=== PATIENT | female | born 1945 | race Caucasian/White ===

== ENCOUNTER → 2023-07-26 08:44 | Outpatient (REF) | payer MEDICARE, OTHER, SELFPAY ==
[2023-07-26 12:25] LABS: ALT (SGPT) 13 U/L (0-35); AST (SGOT) 26 U/L (14-36); Albumin 4.3 g/dl (3.5-5.0); Alkaline Phosphatase 65 U/L (38-126); Blood Urea Nitrogen 27 mg/dl (7-17); Calcium 9.8 mg/dl (8.4-10.2); Carbon Dioxide 27 mmol/L (22-30); Chloride 103 mmol/L (98-107); Glucose 110 mg/dl (70-99); HDL Cholesterol 52 mg/dl; LDL Cholesterol, Calculated 164 mg/dl; Potassium 4.4 mmol/L (3.5-5.1); Sodium 139 mmol/L (135-145); Total Bilirubin 0.7 mg/dl (0.2-1.3); Total Cholesterol 241 mg/dl (50-199); Total Protein 7.2 g/dl (6.3-8.2); Triglyceride 126 mg/dl (10-149); Very Low Density Lipoprotein 25 mg/dl (0-30); eGFR 51.75
[2023-07-26 12:57] LABS: Glycohemoglobin (HgbA1c) 6.1 % (4.0-5.6)
== END ==
LOC: HWLAB 08:44
PROVIDERS: ATTENDING PHYSICIAN Internal Medicine
DX: E78.2 Mixed hyperlipidemia (principal); R73.01 Impaired fasting glucose
CPT/HCPCS: 36415; 80053; 80061; 83036

== ENCOUNTER → 2024-01-28 10:21 | Outpatient (REF) | payer MEDICARE, OTHER, SELFPAY ==
[2024-01-28 13:24] LABS: ALT (SGPT) 18 U/L (0-35); AST (SGOT) 26 U/L (14-36); Albumin 4.5 g/dl (3.5-5.0); Alkaline Phosphatase 65 U/L (38-126); Blood Urea Nitrogen 32 mg/dl (7-17); Calcium 9.7 mg/dl (8.4-10.2); Carbon Dioxide 29 mmol/L (22-30); Chloride 105 mmol/L (98-107); Glucose 111 mg/dl (70-99); HDL Cholesterol 64 mg/dl; LDL Cholesterol, Calculated 162 mg/dl; Potassium 4.5 mmol/L (3.5-5.1); Sodium 143 mmol/L (135-145); Total Bilirubin 0.7 mg/dl (0.2-1.3); Total Cholesterol 252 mg/dl (50-199); Total Protein 7.5 g/dl (6.3-8.2); Triglyceride 131 mg/dl (10-149); Very Low Density Lipoprotein 26 mg/dl (0-30); eGFR > 60.00
== END ==
LOC: HWLAB 10:21
PROVIDERS: ATTENDING PHYSICIAN Internal Medicine
DX: I10 Essential (primary) hypertension (principal); E78.2 Mixed hyperlipidemia; R73.01 Impaired fasting glucose
CPT/HCPCS: 36415; 80053; 80061; 83036

== ENCOUNTER → 2024-06-09 09:50 | Outpatient (REF) | payer MEDICARE, OTHER, SELFPAY | LOC: HWRCS 09:50 | PROVIDERS: ATTENDING PHYSICIAN Student in an Organized Health Care Education/Training Program; FAMILY PHYSICIAN Internal Medicine | DX: I35.1 Nonrheumatic aortic (valve) insufficiency (principal) | CPT/HCPCS: 93306 ==

== ENCOUNTER → 2024-06-24 10:55 | Outpatient (REF) | payer MEDICARE, OTHER, SELFPAY | LOC: HWRAD 10:55 | PROVIDERS: ATTENDING PHYSICIAN Internal Medicine | DX: M81.0 Age-related osteoporosis without current pathological fracture (principal) | CPT/HCPCS: 77080 ==

== ENCOUNTER → 2024-08-03 08:46 | Outpatient (REF) | payer MEDICARE, OTHER, SELFPAY ==
[2024-08-03 14:14] LABS: ALT (SGPT) 15 U/L (0-35); AST (SGOT) 23 U/L (14-36); Albumin 4.3 g/dl (3.5-5.0); Alkaline Phosphatase 60 U/L (38-126); Blood Urea Nitrogen 22 mg/dl (7-17); Calcium 9.8 mg/dl (8.4-10.2); Carbon Dioxide 26 mmol/L (22-30); Chloride 108 mmol/L (98-107); Glucose 116 mg/dl (70-99); HDL Cholesterol 59 mg/dl; LDL Cholesterol, Calculated 154 mg/dl; Potassium 4.2 mmol/L (3.5-5.1); Sodium 142 mmol/L (135-145); Total Bilirubin 0.7 mg/dl (0.2-1.3); Total Cholesterol 233 mg/dl (50-199); Total Protein 7.3 g/dl (6.3-8.2); Triglyceride 103 mg/dl (10-149); Very Low Density Lipoprotein 20 mg/dl (0-30); eGFR > 60.00
== END ==
LOC: HWLAB 08:46
PROVIDERS: ATTENDING PHYSICIAN Internal Medicine
DX: E78.2 Mixed hyperlipidemia (principal); R73.01 Impaired fasting glucose
CPT/HCPCS: 36415; 80053; 80061; 83036

== ENCOUNTER 2024-08-27 16:34 | Emergency (ER) | payer MEDICARE, OTHER, SELFPAY ==
[2024-08-27] VITALS (27 sets, daily range): BP systolic 81–120; BP diastolic 34–89; BMI 23.1
[2024-08-27 17:14] LABS: Hematocrit 40.2 % (37.0-47.0); Hemoglobin 13.4 g/dL (12.0-16.0); Mean Corp Hgb Conc. 33.3 g/dL (33.0-37.0); Mean Corpuscular Volume 90.1 fL (81.0-99.0); Nucleated Red Blood Cells % 0 %; Platelet Count 215 10^3/uL (130-400); Red Cell Dist. Width 14.2 % (11.5-14.5)
--- NOTE | 2024-08-27 17:26 | ED.GENMED ---
History of Present Illness
General
Chief Complaint: Chest Pain
Source: patient and family
Time Seen by Provider: 08/27/24 17:02
History of Present Illness
History of Present Illness:
78-year-old female presents emergency department with complaints of feeling like she is in A-fib. She had an episode initially 2 years ago and since that time has been very compliant with her medications which includes Eliquis and diltiazem. She
noted her symptoms initially 2:45 PM today where she felt like her heart was racing associated with 'a little discomfort' in the left anterior chest. This not associated with back pain neck pain, headache, dizziness, diaphoresis, dyspnea, leg
swelling, or other complaints. She took her evening dose of diltiazem early without relief of symptoms.
Past History
Past History
ED Past Medical History: Arrthythmia, HTN, Hypercholesterolemia and Other (Mitral and aortic valve regurg)
ED Past Surgical History: Gynecological
Social History
Tobacco: Non-smoker
Alcohol: None
Drug: None
Personal:
Living: with family
Family History
Family History: CAD (Age 80)
Phy Exam
Physical Exam
Physical Exam:
GENERAL: Alert , in no apparent distress
EYE: pupils equal and reactive
NECK: Supple, no significant adenopathy.
ENT: o/p clr, mmm.
CARDIAC: Irregularly irregular, tachycardic
LUNGS: Clear breath sounds bilaterally, no acute respiratory distress, no wheezes rales or rhonchi
ABDOMEN: Soft, without focal tenderness, no r/g, no cvat
NEUROLOGICAL: Alert and oriented, no focal neuro deficits
SKIN: Warm and dry, skin intact.
MUSCULOSKELETAL: No edema, well perfused.
PSYCH: Normal and appropriate interaction but somewhat anxious.
Scores
Heart Score for Chest Pain Patients
STEMI patient?: Not applicable
Course
Orders/Labs/Results
Orders:
Orders
08/27/24 16:37
EKG [Electrocardiogram (*1)] Urgent
Reason for Study: Chest Pain
EKG- Treatment ONCE
08/27/24 17:06
CBC/With Diff [Complete Blood Count/With Diff] Urgent
CMP [Comprehensive Metabolic Panel] Urgent
TSH Urgent
Comment: ADD ON
08/27/24 17:17
Add On- LAB Stat
Comments:: A fib
Tests Added?: TSH
08/27/24 17:25
Lorazepam [Ativan] 0.5 mg IV NOW STA
08/27/24 17:54
Propofol [Diprivan] 20 ml .ROUTE .STK-MED
08/27/24 18:29
Diltiazem HCl [Cardizem] 14 mg IV NOW STA
08/27/24 18:30
Diltiazem 125 mg/125 ml Nss [Cardizem] 125 mg in 125 ml IV PER PROTOCOL
Initial dose in mg/hr, then titrate:: 5
Titrate to keep:: Heart rate 80-100 bpm
Titrate by mg/hr:: 5 mg/hr
Frequency of titrations (minutes):: 15
Maximum dose in mg/hr:: 15
Abnormal Lab Results
08/27/24
17:06
MPV 10.7 H fL
(7.4-10.4)
BUN 25 H mg/dl
(7-17)
Glucose 152 H mg/dl
(70-99)
Total Protein 8.4 H g/dl
(6.3-8.2)
08/27/24 17:06
08/27/24 17:06
Vital Signs
Initial and Last Documented VS:
Initial Vital Signs
Temp Pulse Resp Pulse Ox
98.1 F 141 20 99
08/27/24 16:40 08/27/24 16:40 08/27/24 16:40 08/27/24 16:40
Last Documented Vital Signs
Temp Pulse Resp BP Pulse Ox
97.5 F 103 17 101/53 93
08/27/24 18:56 08/27/24 21:00 08/27/24 21:00 08/27/24 19:21 08/27/24 21:00
Procedures
Cardioversion
Indication:: Afib
Performed by:: bf
Synchronized?: Yes
Energy Used: Other
Number of attempts: 3
Successful?: No
ASA Risk Score: Class II
Any reaction or bad outcome to prior sedation/anesthesia?: No history of a reaction
Sedation level to be attained: moderate
Chart and allergies reviewed: Yes
Patient reassessed prior to sedation: Yes
Time out completed at (validating right patient & procedure): 18:10
History of difficult intubation: No
Airway free of obstruction: Yes
Patient has a gag reflex: Yes
Patient is able to open mouth: Yes
Patient has no dentures: Yes
Patient has no loose teeth: Yes
Medication administered by Provider during Moderate Sedation: IV Propofol (mg)
Total dose administered: 30
Time drug administered: 18:11
Start Time: 18:10
Stop Time: 18:26
*Pulse Oximetry
SaO2: 98
Oxygen Mode of Delivery: Room air
Patient hypoxic: no
*Critical Care Note
Total Time (30-74mins, 75-104mins- exclusive of procedures): Not Applicable
Update Note
Update Note:
Patient presents to the Emergency Department with __palpitations and slight chest discomfort
Number and Complexity of Problems Addressed at the Encounter
� Chronic conditions affecting care:
� Acute Exacerbation and/or Progression of Chronic Illness:
� Differential Diagnosis includes: But not limited to SVT, a flutter, A-fib, electrolyte disorder, ACS, etc. etc.
Amount and/or Complexity of Data to be Reviewed and Analyzed
� I performed an independent evaluation of and my interpretation is:
EKG: Read by me, atrial fibrillation with RVR, no acute ischemia, normal axis
CT:
Xrays:
Laboratory Studies: Generally unremarkable
Other:
� Review of other/old records reveals:
� Clinical information was obtained by an independent historian: Daughter and who are at bedside
� Prescriptions/Medications Considered but not given:
� Further testing considered but not performed:
Risk of Complications and/or Morbidity or Mortality of Patient Management
� Social determinants of health affecting care:
� Discussion with other providers (PCP, Hospitalists, Consultants, etc):
� Escalation of care including admission/observation vs risk of discharge considered: Patient reaffirms that she is compliant with her DOAC. Long discussion with patient, daughter, and regarding options with rate control
versus cardioversion. She elects for cardioversion here in the emergency department. She is a candidate given her compliance with DOAC and lack of other complicating factors. Will give a small dose of Ativan given patient's reported anxiety.
Risk benefits explained, consent signed, cardioversion performed, unfortunately this was not successful. Patient was then given diltiazem IV, and then observed off of this medication. She continues to be in atrial fibrillation but is rate
controlled in the 90s and feels well, would like to go home. Case discussed with cardiology, Dr. Pennington, who recommends that she increase her Cardizem to 180 mg and call the office at 9 AM tomorrow for prompt follow-up. Patient is comfortable with this
plan, and I will with her prescription for this. She denies chest pain, dyspnea, or other complaints.
(Of note, pt with c/o redness and discomfort ant chest, may be related to cv. No break in skin. Advised cool compresses, close monitoring_)
ED Attending Note
-
Portions of this chart may have been created with voice recognition software.� Occasional wrong word or��sound alike� substitutions may have occurred due to the inherent limitations of voice recognition software.
Discharge Plan
Departure
Patient Disposition: Home (Routine Discharge)
Date of Disposition: 08/27/24
Time of Disposition: 21:02
Patient with high blood pressure during this ER visit?: Yes
Condition: Good
Discharge Problem:
Atrial fibrillation
Instructions: Atrial fibrillation, BLOOD PRESSURE
Prescriptions:
New
diltiazem HCl [Cardizem CD] 180 mg capsule,extended release 24hr
180 mg PO DAILY Qty: 30 0RF
No Action
ascorbic acid (vitamin C) [Vitamin C] 1,000 mg Tablet
1,000 mg PO DAILY
magnesium 500 mg Tablet
500 mg PO HS
simvastatin 10 mg tablet
10 mg PO Q48H@2200
calcium carbonate 400 mg calcium (1,000 mg) Tablet,Chewable
400 mg PO BID
lisinopril 10 mg tablet
10 mg PO DAILY
diltiazem HCl 120 mg capsule,extended release 24hr
120 mg PO HS
Multivitamin 50 Plus Tablet
1 tab PO BID
cholecalciferol (vitamin D3) 50 mcg (2,000 unit) Capsule
50 mcg PO DAILY
turmeric root extract 500 mg Capsule
1,000 mg PO DAILY
Eliquis 5 mg tablet
5 mg PO BID
Black Elderberry
1 gummy PO DAILY
coenzyme Q10 [CoQ-10] 100 mg Capsule
100 mg PO DAILY
Referrals:
Pillo Osorio MD [Active, Cardiology] - Tomorrow
Patricia De lValle MD [Family Provider, Internal Medicine]
Activity Restrictions/Additional Instructions:
INCREASE THE DOSE OF YOUR CARDIZEM (DILTIAZEM) TO 180 MG PER DAY. CALL THE [facility]PERVISOR AT 9AM TOMORROW MORNING FOR PROMPT FOLLOW UP. IF YOU DEVELOP FEVER, CHEST PAIN, TROUBLE BREATHING, PALPITATIONS, DIZZINESS, OR OTHER WORRISOME SIGNS, GO TO THE
ER IMMEDIATELY!
Interventions
Interventions:
*Risk Screen - Suicide Last Done: 08/27/24 16:40
*General Assessment Last Done: 08/27/24 16:40
*Neglect/Abuse Screening Last Done: 08/27/24 16:40
*ED- Fall Risk Assessment Last Done: 08/27/24 17:02
*ED COVID-19 Vaccine History Last Done: 08/27/24 16:40
*Nursing Disposition Last Done: 08/27/24 21:29
ED- Cardiac Assessment Last Done: 08/27/24 17:02
Discharge Date and Time
Discharge Date/Time: 08/27/24 21:29
Print Language: TRISTANIAN
[2024-08-27 17:27] LABS: ALT (SGPT) 17 U/L (0-35); AST (SGOT) 26 U/L (14-36); Albumin 4.9 g/dl (3.5-5.0); Alkaline Phosphatase 70 U/L (38-126); Blood Urea Nitrogen 25 mg/dl (7-17); Calcium 10.0 mg/dl (8.4-10.2); Carbon Dioxide 23 mmol/L (22-30); Chloride 106 mmol/L (98-107); Estimated Creatinine Clearance 39 ml/min; Glucose 152 mg/dl (70-99); Potassium 4.3 mmol/L (3.5-5.1); Sodium 139 mmol/L (135-145); Total Protein 8.4 g/dl (6.3-8.2); eGFR > 60.00
[2024-08-27] MEDS: ATIVAN 0.5 MG IV (17:31)
[2024-08-27 18:06] LABS: TSH 1.80 uIU/ml (0.47-4.68)
[2024-08-27] MEDS: CARDIZEM 14 MG IV (18:41)
[2024-08-27] MEDS: CARDIZEM 125 IV (18:43)
== END 2024-08-27 21:29 | disposition home or self-care (01) ==
LOC: EMR 16:34
PROVIDERS: EMERGENCY PHYSICIAN Emergency Medicine; FAMILY PHYSICIAN Internal Medicine
DX: I48.91 Unspecified atrial fibrillation (principal); E78.00 Pure hypercholesterolemia, unspecified; I10 Essential (primary) hypertension; Z79.01 Long term (current) use of anticoagulants; Z79.899 Other long term (current) drug therapy
CPT/HCPCS: 96374; 96375; 99284; 80053; 84443; 85025; 93005

== ENCOUNTER → 2025-01-27 09:28 | Outpatient (REF) | payer MEDICARE, OTHER, SELFPAY ==
[2025-01-27 10:39] LABS: Glycohemoglobin (HgbA1c) 6.1 % (4.0-5.9)
[2025-01-27 11:01] LABS: ALT (SGPT) 15 U/L (0-35); AST (SGOT) 25 U/L (14-36); Albumin 4.2 g/dl (3.5-5.0); Alkaline Phosphatase 81 U/L (38-126); Blood Urea Nitrogen 24 mg/dl (7-17); Calcium 9.4 mg/dl (8.4-10.2); Carbon Dioxide 28 mmol/L (22-30); Chloride 103 mmol/L (98-107); Glucose 101 mg/dl (70-99); HDL Cholesterol 49 mg/dl; LDL Cholesterol, Calculated 138 mg/dl; Potassium 4.4 mmol/L (3.5-5.1); Sodium 137 mmol/L (135-145); Total Protein 7.3 g/dl (6.3-8.2); Very Low Density Lipoprotein 39 mg/dl (0-30); eGFR > 60.00
== END ==
LOC: REG 09:28
PROVIDERS: ATTENDING PHYSICIAN Internal Medicine; OTHER PHYSICIAN Student in an Organized Health Care Education/Training Program
DX: E78.2 Mixed hyperlipidemia (principal); R73.01 Impaired fasting glucose
CPT/HCPCS: 36415; 80053; 80061; 83036